=== PATIENT | female | born 1940 ===

== ENCOUNTER 2019-01-06 01:34 | Inpatient (IN) | payer MEDICARE, OTHER ==
[2019-01-05 15:27] LABS: INR 0.91
[2019-01-06] VITALS (13 sets, daily range): BP systolic 94–135; BP diastolic 55–90
[~2019-01-06] VITALS: Ht 170.2 cm; Wt 99.3 kg
[~2019-01-06 01:34] MED LIST: ASPI81TA94 PO; HCTZ25 PO; HYDR-2966 PO; LEVO100T95 PO; LOR5/325 PO; MOM PO
[2019-01-06] MEDS ORDERED: ACETAMINOPHEN(*)1000 MG/100 ML 0 ML IVPB ONE (07:52)
[2019-01-06] MEDS ORDERED: CLINDAMYCIN(*) 900 MG/NS 50 ML 50 ML IVPB ONE (08:15)
[2019-01-06] MEDS ORDERED: NORMOSOL R SOLN(*) 1000 ML BAG 1,000 ML IV PRN (08:15)
[2019-01-06] MEDS ORDERED: ACETAMINOPHEN 500 MG TAB PO ONE (08:15)
[2019-01-06] MEDS ORDERED: MIDAZOLAM 2 MG/2 ML VIAL IVP PRN (08:15)
[2019-01-06] MEDS ORDERED: FAMOTIDINE 20 MG TAB PO ONE (08:15)
[2019-01-06] MEDS ORDERED: PREGABALIN 75 MG CAPSULE PO ONE (08:15)
[2019-01-06] MEDS ORDERED: BACITRACIN 50000 UNIT/VIAL 100,000 UNIT in NS 0.9% 3000 ML IRRIGATION BAG 3,000 ML IR ONE (08:15)
[2019-01-06] MEDS ORDERED: ROPIVACAINE/EPI/CLONIDINE/KET 50 ML SYRINGE INJ ONE (08:15)
[2019-01-06] MEDS ORDERED: LIDOCAINE/SOD BICARB 8.4% SYR ID ONE (08:15)
[2019-01-06] MEDS ORDERED: DEXAMETHASONE SOD 4 MG/ML VIAL ONE ×2 (10:39→13:03)
[2019-01-06] MEDS ORDERED: ROCURONIUM BR 10 MG/ML 5 ML SY 5 ML ONE (10:39)
[2019-01-06] MEDS ORDERED: PROPOFOL EMUL(*) 10MG/ML 20 ML 20 ML ONE (10:39)
[2019-01-06] MEDS ORDERED: ONDANSETRON 4 MG/2 ML VIAL ONE (10:39)
[2019-01-06] MEDS ORDERED: LIDOCAINE MPF 1% 5 ML VIAL ONE (10:39)
[2019-01-06] MEDS ORDERED: SUGAMMADEX SOD 200 MG/2 ML SDV ONE (10:49)
[2019-01-06] MEDS ORDERED: fentaNYL CITR 250 MCG/5 ML AMP ONE (10:50)
[2019-01-06] MEDS ORDERED: LIDO/EPI 2% MPF 1:200,000 20ML ONE (11:53)
[2019-01-06] MEDS ORDERED: ROPIVACAINE 0.2% 20 ML VIAL ONE (11:54)
[2019-01-06] MEDS ORDERED: WATER STERILE FOR IRRIG 1000ML IR ONE (13:59)
[2019-01-06] MEDS ORDERED: NS 0.9% IRRIGATION 1000ML PLCT IR ONE (14:00)
[2019-01-06] MEDS ORDERED: OXYC-865 PO (14:46)
[2019-01-06] MEDS ORDERED: fentaNYL CITR 100 MCG/2 ML AMP ONE (15:12)
[2019-01-06] MEDS ORDERED: oxyCODON/ACET (*)5/325MG (CII) 1 TAB TAB PO PRN (15:50)
[2019-01-06] MEDS ORDERED: FLUSH 10 ML SYR IVP PRN (15:50)
[2019-01-06] MEDS ORDERED: LR 1000 ML BAG 1000 ML IV PRN (15:50)
[2019-01-06] MEDS ORDERED: ONDANSETRON 4 MG/2 ML VIAL IVP PRN (15:50)
[2019-01-06] MEDS ORDERED: MAGNESIUM HYDROXIDE* 30ML UDCP PO PRN (15:50)
[2019-01-06] MEDS ORDERED: MAGNESIUM CITRATE 300 ML BTL PO PRN (15:50)
[2019-01-06] MEDS ORDERED: PROMETHAZINE 25 MG/ML 1 ML AMP IVP PRN (15:50)
[2019-01-06] MEDS ORDERED: ZOLPIDEM TARTRATE 5 MG TAB PO PRN (15:50)
[2019-01-06] MEDS ORDERED: diphenhydrAMINE 25 MG CAP PO PRN (15:50)
[2019-01-06] MEDS ORDERED: HYDROmorphone HCL 2 MG/ML SDV IVP PRN (15:50)
[2019-01-06] MEDS ORDERED: BISACODYL 10 MG SUPP PR PRN (15:50)
[2019-01-06] MEDS ORDERED: diphenhydrAMINE 50 MG/ML VIAL IVP PRN (15:50)
--- NOTE | 2019-01-06 16:00 | RADIOLOGY IMAGING REPORT ---
[facility]AC[facility] PATIENT NAME: Basilia Gunn : 1940 MR: [id number] V: [id number] EXAM DATE: ORDERING PHYSICIAN: AVELINO OCHOA TECHNOLOGIST: Location: [facility] [place] Patient: Basilia Gunn : 1940 Visit/Account:[id number] Date of Sevice: 01/06/2019 Exam type: SHOULDER 1 VIEW LEFT History: Post op viewing Comparison: None. Findings: A single AP view of the left shoulder demonstrates a reverse left shoulder arthroplasty that appears in good anatomic alignment on this AP view. Soft tissue gas projects over the postoperative shoulder IMPRESSION: 1. As above Report Dictated By: Angie Fry MD at 01/06/2019 3:54 PM Report E-Signed By: Angie Fry MD at 01/06/2019 3:55 PM WSN:[email or web address]
--- NOTE | 2019-01-06 17:02 | Hospitalist Progress Note ---
Subjective Progress Notes Subjective No cp/sob. 150cc EBL. 1800cc of crystalloid, dexamethasone and ephedrine given intra-op. Physical Exam Vital Signs Date Time Temp Pulse Resp B/P (MAP) Pulse Ox O2 Delivery O2 Flow Rate FiO2 01/06/19 16:47 93 Nasal Cannula 2.0 01/06/19 16:40 91 12 01/06/19 16:30 97.7 135/90 (105) General Appearance: Alert, Awake, No Acute Distress Cardiovascular: Regular Rate and Rhythm Respiratory: Clear to Auscultation Extremities: No Edema Assessment and Plan Problems: (1) Status post reverse total shoulder replacement Status: Acute Assessment & Plan: No CV/pulmonary issues. Will defer to Dr. Rojo for VTE prophylaxis. (2) HTN (hypertension) Status: Chronic Assessment & Plan: Continue chronic HCTZ with parameters. (3) Hypothyroid Status: Chronic Assessment & Plan: Continue chronic levothyroxine. Problem Qualifiers (1) Status post reverse total shoulder replacement: Laterality: left Qualified Codes: Z96.612 - Presence of left artificial shoulder joint SABAS VIVAR MD Jan 06, 2019 17:02
[2019-01-06] MEDS: CLINDAMYCIN(*) 600 MG/NS 50 ML 50 ML IVPB SCH (20:29)
[2019-01-06] MEDS ORDERED: NS(*) 0.9% 250 ML BAG 250 ML ONE (20:35)
[2019-01-07 03:05] VITALS: BP 106/57
[2019-01-07] MEDS: CLINDAMYCIN(*) 600 MG/NS 50 ML 50 ML IVPB SCH (04:39)
--- NOTE | 2019-01-07 05:56 | OPERATIVE REPORT 1 ---
EVENT DATE: January 06, 2019 SURGEON: Luan Rojo MD ANESTHESIOLOGIST: Jasvir Segura MD ANESTHESIA: General LMA. CLINICAL SUPPORT TECH: PAUL Nguyen PREOPERATIVE DIAGNOSIS Left rotator cuff tear arthropathy. POSTOPERATIVE DIAGNOSIS Left rotator cuff tear arthropathy. PROCEDURE PERFORMED Left reverse total shoulder arthroplasty. ESTIMATED BLOOD LOSS 150 mL. DRAINS None. COMPLICATIONS None. TOURNIQUET TIME Not applicable. IMPLANTS USED DJO reverse with a 32/-4 standard rotating baseplate and a 32 head, with an 8 size humeral stem with a small shell, and then corresponding locking screws in the baseplate. SPECIMENS None. FINDINGS The patient had a significant tear of her supraspinatus and infraspinatus, but was amenable for reverse total shoulder. INDICATIONS AND HISTORY This patient is a 78-year-old female who presented to my clinic for evaluation of left shoulder pain and irritating going on for some time. She knew she had a rotator cuff tear and had that pain and irritation after an injury, and so we got x-rays that showed that she had rotator cuff tear arthropathy. We talked to her about doing a reverse total shoulder arthroplasty. She had had a reverse total shoulder arthroplasty on the right side about six to seven years ago, and she had very good results, and so she wanted to go ahead with that today. The risks and benefits were discussed with the patient, and informed consent was obtained at the last clinic visit. DESCRIPTION OF PROCEDURE The patient was brought in to the operating room. She and the procedure were both verified. She was placed supine on the operating table and induced and intubated by Anesthesia. The patient was then put in a beach-chair position, and the left arm was prepped and draped in the usual fashion, and a time-out was observed, verifying the correct patient and procedure. The standard incision was made under the deltopectoral interval after anesthetizing the skin with lidocaine with epinephrine. I then went through the skin and subcutaneous tissue and then got down to the deltopectoral interval. Once I identified the cephalic vein, I was then able to go through the deltopectoral interval down to the clavipectoral fascia. At this point, I did a biceps tenodesis associated with the pec and area and then cut the biceps and the long head of the biceps tendon. This was then followed by peeling back the subscapularis off of the lesser tuberosity, and I was able to then tag that for later repair and then get down into the intra-articular portion of the joint. Once I was able to do this, I was then able to dislocate the joint without any difficulty. The supraspinatus and most of the infraspinatus were torn off and had very thin tissue associated with any rotator cuff that was left, and so it was amenable for reverse total shoulder arthroplasty. I then was able to cut the head without any major difficulty in accordance with the DJO prosthesis. I then moved the head posteriorly and then put retractors around the glenoid to gain access to the bone at 360 degrees around. I drilled the central drill portion of the glenoid, then followed by the tap. Once we had the tap on, we then reamed to the smaller reamer and then put in the standard baseplate without any difficulty. I then placed the guide over the baseplate and then drilled all four screws and then put in the corresponding screws without any major difficulty also. Once everything was in good position, we then put in the 32/-4 head without any issues, and it fit on the Santiago taper very well. We put the set screw inside and used the torque-limiting screwdriver and then hit it again and then used the torque-limiting screwdriver once more. I then irrigated with copious amounts of saline, including IrriSept, and then we let that sit for a couple minutes. We then turned attention back to the humerus, where I was able to sound the humerus initially and then ream it up to a 10 reamer, and so therefore we used an 8 stem. I put some preliminary bone graft on the shaft itself and then passed five sutures through the lesser tuberosity to make it amenable for a rodent for the subscapularis repair. I then placed the standard stem in after placing those sutures and then tied the sutures over the subscapularis after relocating and testing and making sure it was in good position with the standard liner. We then put in the final standard liner and then reduced it and then repaired the subscapularis as mentioned before with those five sutures. We then put the arm through a range of motion. There were no signs of impingement or problems associated with it, so we irrigated again with copious amounts of saline and the IrriSept. We then closed the deltopectoral interval with a #2 Quill. This was then followed by 2-0 Quill in the subcutaneous tissue and then a 4-0 subcuticular running Monocryl. The wound was anesthetized with ropivacaine and then dressed with Steri-Strips, gauze, 4x4s, and a soft dressing. She was put in a regular sling. She will be admitted overnight, and she was awakened, extubated, and transported to the PACU in stable condition. JAMIA
[2019-01-07] MEDS ORDERED: LEVOTHYROXINE SOD 0.1 MG TAB PO SCH (06:00)
[2019-01-07 08:02] VITALS: BP 97/55
[2019-01-07] MEDS ORDERED: HYDROCHLOROTHIAZIDE 25 MG TAB PO SCH (09:00)
--- NOTE | 2019-01-07 10:24 | Hospitalist Progress Note ---
Subjective Progress Notes Subjective She was admitted s/p shoulder replacement. She had no acute events overnight. She would like to go home today. Patient Complains of: Cardiovascular: No: Chest Pain Respiratory: No: Shortness of Breath Physical Exam Vital Signs Date Time Temp Pulse Resp B/P (MAP) Pulse Ox O2 Delivery O2 Flow Rate FiO2 01/07/19 08:02 98.3 71 97/55 (69) 91 01/07/19 03:05 16 Nasal Cannula 2.0 Intake and Output 01/07/19 01:01 Intake Total 5070 ml Balance 5070 ml Intake Oral 1220 ml IV Total 3850 ml # Voids 2 General Appearance: Alert, Awake, No Acute Distress, Afebrile Neuro: No Gross deficits Cardiovascular: Regular Rate and Rhythm Respiratory: No Respiratory Distress, Clear to Auscultation GI: Soft and Non-Tender Psych: Alert & Oriented X3, Appropriate Mood & Affect Result Diagram: 01/07/19 0603 Assessment and Plan Problems: (1) Status post reverse total shoulder replacement Status: Acute Assessment & Plan: No CV/pulmonary issues. Will defer to Dr. Rojo for VTE prophylaxis. (2) HTN (hypertension) Status: Chronic Assessment & Plan: Continue chronic HCTZ with parameters. (3) Hypothyroid Status: Chronic Assessment & Plan: Continue chronic levothyroxine. Exam Sepsis Risk: No Definite Risk Problem Qualifiers (1) Status post reverse total shoulder replacement: Laterality: left Qualified Codes: Z96.612 - Presence of left artificial shoulder joint (2) HTN (hypertension): Hypertension type: essential hypertension Qualified Codes: I10 - Essential (primary) hypertension SONU [place] Jan 07, 2019 10:24
[2019-01-07 12:00] VITALS: Ht 170.2 cm; Wt 99.3 kg
--- NOTE | 2019-01-07 12:04 | NUR ---
Occupational Therapy Impression Pt alert and agreeable to OT tx. Reporting no pain. Educated on ther ex per protocol, wear/fit of sling, and ADLs. Pt verbalized understanding with no further questions/concerns for OT at end of tx. SpO2 WNL on room air. Pt ready for discharge home when medically appropriate. Plan for follow-up with Dr. Rojo prior to start of outpatient PT. Occupational Therapy Goals Patient's Goal
== END 2019-01-07 13:30 | disposition home or self-care (01) | DRG 483 ==
LOC: OR 01:34 → MED 16:20
PROVIDERS: ADMIT Orthopaedic Surgery; ATTEND Orthopaedic Surgery
PROC: 0RRK00Z Replacement of Left Shoulder Joint with Reverse Ball and Socket Synthetic Substitute, Open Approach (ICD-10-PCS; principal; 2019-01-06 13:08)
DX: M19.012 Primary osteoarthritis, left shoulder (principal); I10 Essential (primary) hypertension; E03.9 Hypothyroidism, unspecified; Z96.653 Presence of artificial knee joint, bilateral
CPT/HCPCS: 36415; 85014; 85018; 85610; 86850; 86900; 86901; 97165; A4565; C1776; J0131; J1100; J2001; J2405; J2704; J2795; J3010; J3490; J7050